=== PATIENT | female | born 1980 | race Caucasian/White ===

== ENCOUNTER 2024-05-25 10:04 | Emergency (ER) | payer OTHER, SELFPAY ==
[2024-05-25 10:10] VITALS: BP 142/103; PULSE 96; TEMP 36.7; O2SAT 99; BMI 41.6
--- NOTE | 2024-05-25 10:13 | XR_ITS ---
The [address] [address] Patient Name: WALDO MOLINA MRN: [id number] date: 1980 Sex: F Assigned Patient Location: ER Current Patient Location: ER Accession/Order Number: [id number] Exam Date: 05/25/2024 10:15 Report Date: 05/25/2024 10:40 At the request of: SANJANA HAAS Procedure: XR ankle RT min 3V PROCEDURE: XR ankle RT min 3V HISTORY: pain COMPARISON: None. FINDINGS: BONES:No appreciable acute fracture or dislocation. Small separate corticated ossification along the proximal dorsal margin of navicular bone favoring sequela of remote injury. Large calcaneal plantar spur. SOFT TISSUES:Mild soft tissue swelling. EFFUSION:None visible. OTHER: Negative. XR/XR ankle RT min 3V IMPRESSION: 1. No acute bone abnormality. Electronically authenticated by: TATYANA TERAN Date: 05/25/2024 10:40
--- NOTE | 2024-05-25 19:20 | ED_ITS ---
HPI HPI - General Adult General Chief complaint: Extremity Injury, Lower Stated complaint: RIGHT ANKLE PAIN SWELLING Time Seen by Provider: 05/25/24 10:40 Mode of arrival: walk-in History of Present Illness HPI narrative: Patient is a 43-year-old female who is presenting to the ER today with chief complaint of right ankle pain. Patient is having pain to the right lateral malleolus and across the dorsal midfoot. 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 Patient worked a few hours and then came to the ER for evaluation secondary to the pain. Patient is able to ambulate on the right lower extremity with pain. Patient last night slipped and had fallen with a plantarflexion injury to the right ankle and foot. Patient has no right hip or knee pain. No significant right foot pain. Most of the pain is across patient's right ankle, right lateral malleolus hurting more than the medial malleolus. No other acute complaints. No other injuries when she had fallen. All systems are negative except as noted/marked. All systems reviewed and otherwise negative. Nurses note and vital signs reviewed and patient is not hypoxic. General: The patient appears well and in no apparent distress. Patient is resting comfortably on cart. Patient is not toxic, lethargic, or listless Skin: Warm, dry, no pallor noted. There is no rash noted. No petechiae, purpura. Head: Normocephalic, atraumatic Eye: Normal conjunctiva, no drainage, EOMI. PERRL Ears, Nose, Mouth, and Throat: oral mucosa is moist. Nares patent. Mouth without vesicles. Cardiovascular: Regular Rate and Rhythm, Respiratory: Patient is in no distress, Back: non-tender, Musculoskeletal: Patient has full range of motion of all of the extremities except to the right lower extremity. Patient has no pain at proximal right fibular head, no pain to the right fifth metatarsal. Moderate pain to the right lateral malleolus, mild to moderate pain to right medial malleolus. Right Achilles tendon is intact. Mild swelling, no ecchymosis. Negative anterior posterior drawer sign. Moderate pain caused with inversion of the right ankle, mild pain with eversion of right ankle., no motor, sensory, or focal neur ological deficits Neurological: A&O x4, normal speech Psychiatric: Cooperative Related Data Home Medications ?Medication ?Instructions ?Recorded ?Confirmed atorvastatin 10 mg tablet 10 mg PO DAILY 05/25/24 05/25/24 desvenlafaxine succinate 100 mg 100 mg PO Q24H 05/25/24 05/25/24 tablet,extended release 24 hr lisinopril 40 mg tablet 40 mg PO DAILY 05/25/24 05/25/24 meloxicam 15 mg tablet 15 mg PO DAILY 05/25/24 05/25/24 metoprolol succinate 50 mg 50 mg PO Q24H 05/25/24 05/25/24 tablet,extended release 24 hr omeprazole 20 mg capsule,delayed 20 mg PO DAILY 05/25/24 05/25/24 release quetiapine 25 mg tablet 25 mg PO Q8H 05/25/24 05/25/24 valacyclovir 1 gram tablet 1,000 mg PO DAILY 05/25/24 05/25/24 Allergies Allergy/AdvReac Type Severity Reaction Status Date / Time No Known Drug Allergies Allergy Verified 05/25/24 10:10 Opioid HPI Opioid Management Most Recent Opioid Data: No Data to Display PFS PFS Social History Little interest or pleasure in doing things: not at all Feeling down, depressed, or hopeless: not at all Exam Constitutional Vital Signs, click to edit/add: Last Vital Signs Temp 98.1 F 05/25/24 10:10 Pulse 96 H 05/25/24 10:10 Resp 18 05/25/24 10:10 BP 142/103 H 05/25/24 10:10 Pulse Ox 99 05/25/24 10:10 Course Vital Signs Vital signs: Vital Signs Temperature 98.1 F 05/25/24 10:10 Pulse Rate 96 H 05/25/24 10:10 Respiratory Rate 18 05/25/24 10:10 Blood Pressure 142/103 H 05/25/24 10:10 Pulse Oximetry 99 05/25/24 10:10 Temperature 98.1 F 05/25/24 10:10 Pulse Rate 96 H 05/25/24 10:10 Respiratory Rate 18 05/25/24 10:10 Blood Pressure 142/103 H 05/25/24 10:10 Pulse Oximetry 99 05/25/24 10:10 Medical Decision Making MDM Narrative Medical decision making narrative: Patient right ankle x-ray showed no acute fracture. Patient was given ice. Patient education on RICE therapy, alternating Tylenol Motrin for pain. Patient was given a work note with restrictions. 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 Patient will follow-up with PCP or orthopedic surgeon if needed if symptoms or not better in 7 to 10 days. Procedure note: Patient was placed in Frank wrap and Aircast to the right ankle. Splint was assisted with . the patient was neurovascularly intact before and after the splint was placed. the affected bones/injured area had proper alignment in a splint. Education on splint care at home was given at bedside. Patient and family have no questions at discharge. No questions at discharge. Discharge Plan Discharge Stand Alone Forms: Work/School Release Chief Complaint: Extremity Injury, Lower Clinical Impression: Ankle pain, right, Right ankle sprain Patient Disposition: Home, Self-Care Time of Disposition Decision: 11:20 Condition: Fair Prescriptions / Home Meds: No Action atorvastatin 10 mg tablet 10 mg PO DAILY desvenlafaxine succinate 100 mg tablet extended release 24 hr 100 mg PO Q24H lisinopril 40 mg tablet 40 mg PO DAILY meloxicam 15 mg tablet 15 mg PO DAILY metoprolol succinate 50 mg tablet extended release 24 hr 50 mg PO Q24H omeprazole 20 mg capsule,delayed release(DR/EC) 20 mg PO DAILY quetiapine 25 mg tablet 25 mg PO Q8H valacyclovir 1 gram tablet 1,000 mg PO DAILY Print Language: Russian Instructions: Ankle Sprain (ED), Ankle Stirrup Splint (ED), P.R.I.C.E. T reatment (ED) Additional Instructions: Ice 20 minutes on, 20 minutes off. Do not use heat. Use Frank wrap and Aircast for the next 7 to 10 days, only take them off for ice and shower. Aircast will fit inside a tennis shoe. Work note given. Follow-up with orthopedic surgery, Dr. Chavez or Dr. Burgos as discussed. Alternate Tylenol and either Motrin, Advil, or ibuprofen every 4 hours to help with pain. Maximum dose of Tylenol is 3000 mg a day. Maximum dose of either Motrin, Advil, or ibuprofen is 2400 mg a day. If you are taking your daily Mobic, continue doing Mobic only during the day, and then use Tylenol every 4 hours along with ice, ice, ice. Referrals: ANIL WILLIS [Primary Care Provider] - 1 week Discharge Date/Time: 05/25/24 11:29
== END 2024-05-25 11:29 | disposition home or self-care (01) ==
PROVIDERS: Emergency Provider Emergency Medicine; PCP Physician Assistant
DX: S93.401A Sprain of unspecified ligament of right ankle, initial encounter (principal); W01.0XXA Fall on same level from slipping, tripping and stumbling without subsequent striking against object, initial encounter; M25.571 Pain in right ankle and joints of right foot
CPT/HCPCS: 73610; 99283